=== PATIENT | female | born 1990 | race Hispanic/Latino ===

== ENCOUNTER 2023-10-10 10:23 | Emergency (ER) | payer OTHER, SELFPAY ==
[2023-10-10 10:51] VITALS: BP 131/73
[2023-10-10 12:00] LABS: Urine Albumin Negative (Neg - Trace); Urine Bilirubin Negative (Negative); Urine Character Clear (Clear); Urine Color Yellow; Urine Glucose Negative (Negative); Urine Ketone Negative (Negative); Urine Leukocyte Negative (Negative); Urine Nitrite Negative (Negative); Urine Occult Blood Negative (Negative); Urine Urobilinogen Negative (Neg - 1+); Urine pH 6.5 (5.0-9.0)
--- NOTE | 2023-10-10 13:29 | ED.GENMED ---
History of Present Illness
General
Chief Complaint: Blood Pressure Problem
Source: patient
Time Seen by Provider: 10/10/23 13:04
History of Present Illness
History of Present Illness:
33-year-old female with no significant past medical history presenting to the emergency department for multitude of concerns.
First concern is patient notes that she is approximately 16 weeks . Made an appointment with an ELECTROPLATING SALES REPRESENTATIVE in [place] that was recommended to her by her primary care provider however patient states she does want to go that far and is
currently in search for another ELECTROPLATING SALES REPRESENTATIVE but has not had any care thus far. She denies any vaginal bleeding or discharge but states she is somewhat concerned that she has not had any ultrasound done during this . She denies any
other related concerns. She notes 1 previous about 10 years ago which was uncomplicated and also had 1 previous miscarriage.
Second concern is patient awoke this morning and while getting out of bed noticed she felt a little lightheaded. Patient took her blood pressure and states it was around 80/50. She reports that after eating and drinking she felt much better and
that her blood pressure also improved. Patient notes that upon getting to the emergency department she had her blood pressure checked and notes that it was unremarkable.
Patient's third concern is that she had previous gastric sleeve surgery done in [place] a few years ago and has since started to notice a slight protrusion just above her umbilicus which she believes to be a hernia. She states that this is not
painful but wanted to make mention of it since she was here today. She denies any bowel changes, nausea or vomiting.
Final concern is that when she has either coughed or sneezed recently she has noticed very slight urinary leakage. Denies any dysuria, frequency, urgency, hematuria.
Past History
Past History
ED Past Medical History: None
ED Past Surgical History: Other (gastric sleeve)
Social History
Tobacco: Non-smoker
Alcohol: None
Drug: None
Personal: Single
Living: with family
Employment: Employed
Review of Systems
Review of Systems
All Other Systems: ROS reviewed and negative except as documented in HPI and ROS
Phy Exam
Physical Exam
Physical Exam:
GENERAL: Alert , in no apparent distress
EYE: clear conjunctiva b/l
HEAD: NCAT
ENT: o/p clr, mmm.
ABDOMEN: Soft, without focal tenderness, no r/g, no cvat. small ventral hernia only noted when patient standing
NEUROLOGICAL: Alert and oriented
SKIN: Warm and dry, skin intact.
MUSCULOSKELETAL: No edema, well perfused.
PSYCH: Normal and appropriate interaction.
Scores
Heart Failure Risk
Heart Failure Risk Score: Not Applicable
Heart Score for Chest Pain Patients
STEMI patient?: Not applicable
Withdrawal Assessment of Alcohol
Withdrawal Assessment Completed?: Not applicable
Course
Orders/Labs/Results
Orders:
Orders
10/10/23 10:57
ECG [Electrocardiogram (*1)] Urgent
Reason for Study: Vertigo / Dizzy
10/10/23 10:58
EKG- Treatment ONCE
10/10/23 11:07
HCG, Urine Qualitative Screen Urgent
Date Specimen was Collected: 10/10/23
Time Specimen was Collected: 11:06
Comment: ADD ON
Urine Culture Reflexed from UA [Urinalysis Reflex To Culture] Urgent
Date Specimen was Collected: 10/10/23
Time Specimen was Collected: 11:06
10/10/23 12:30
Add On- LAB Urgent
Tests Added?: hcg qualitative
Vital Signs
Initial and Last Documented VS:
Initial Vital Signs
Temp Pulse Resp BP Pulse Ox
98.1 F 96 20 131/73 99
10/10/23 10:51 10/10/23 10:51 10/10/23 10:51 10/10/23 10:51 10/10/23 10:51
Last Documented Vital Signs
Temp Pulse Resp BP Pulse Ox
98.1 F 75 18 100/70 100
10/10/23 10:51 10/10/23 13:56 10/10/23 13:56 10/10/23 13:56 10/10/23 13:56
MDM/Problems Addressed
Differential Diagnosis Includes:
Late first or early second trimester which appears to have no acute complications at this time. Patient without any symptoms that would suggest miscarriage
Patient also appears to have a small ventral hernia. There is no evidence for strangulation or incarceration
I suspect some urinary leakage is likely related to or previous pregnancies. Will check a urinalysis to ensure no urinary tract infection
I suspect patient's blood pressure that she checked in the morning was likely related to dehydration or orthostasis. Currently she is asymptomatic with normal blood pressures.
MDM/Problems Addressed:
33-year-old female presenting to the emergency department for a multitude of concerns. For patient's related concern we did a bedside ultrasound to show patient her . [place]-rump length measured approximately 15w5d. heart
rate measured to 165 bpm and there was good movement. I explained to patient that she needs to follow-up with an ELECTROPLATING SALES REPRESENTATIVE and if she is not happy with the care that she is getting in [place] I provided her with information for the ELECTROPLATING SALES REPRESENTATIVE
clinics at [facility] [facility] [place]. Patient advised on return precautions to the ER.
For patient's small ventral hernia I advise she follow-up with her primary care provider but did discuss symptoms that might suggest either strangulation or incarceration and return precautions to the ER for this.
Patient's urinalysis is without any evidence for urinary tract infection. She also has normal blood and is no longer lightheaded. Advised good hydration and outpatient follow-up.
*Pulse Oximetry
Patient hypoxic: no
*Critical Care Note
Total Time (30-74mins, 75-104mins- exclusive of procedures): Not Applicable
ED Attending Note
-
Portions of this chart may have been created with voice recognition software.� Occasional wrong word or��sound alike� substitutions may have occurred due to the inherent limitations of voice recognition software.
Discharge Plan
Departure
Patient Disposition: Home (Routine Discharge)
Date of Disposition: 10/10/23
Time of Disposition: 13:29
Patient with high blood pressure during this ER visit?: No
Discharge Problem:
Second trimester , Orthostasis
Instructions: How to plan and prepare for a healthy
Referrals:
Thuy Acevedo DO [Family Provider] -
Interventions
Interventions:
*Risk Screen - Suicide Last Done: 10/10/23 10:51
*General Assessment Last Done: 10/10/23 10:51
*Neglect/Abuse Screening Last Done: 10/10/23 10:51
*Nursing Disposition Last Done: 10/10/23 13:56
ED- Cardiac Assessment Last Done: 10/10/23 13:51
ED- Neurological Assessment Last Done: 10/10/23 13:51
ED- Pulmonary Assessment Last Done: 10/10/23 13:51
Discharge Date and Time
Discharge Date/Time: 10/10/23 13:56
Print Language: [place]
[2023-10-10 13:45] LABS: HCG, Urine Qualitative Screen Positive
[2023-10-10 13:56] VITALS: BP 100/70
== END 2023-10-10 13:56 | disposition home or self-care (01) ==
LOC: EMR 10:23
PROVIDERS: Emergency Medicine; EMERGENCY PHYSICIAN Student in an Organized Health Care Education/Training Program; FAMILY PHYSICIAN Internal Medicine
DX: O26.52 Maternal hypotension syndrome, second trimester (principal); Z3A.16 16 weeks gestation of pregnancy
CPT/HCPCS: 99282; 81003; 81025; 93005